=== PATIENT | female | born 1955 | race Caucasian/White ===

== ENCOUNTER 2020-05-04 18:12 | Emergency (ER) | payer OTHER ==
[~2020-05-04] VITALS: Ht 167.6 cm; Wt 95.7 kg
[2020-05-04] MEDS ORDERED: PANADOL (18:49)
[2020-05-04] MEDS ORDERED: SYNTHROID (18:50)
[2020-05-04] MEDS ORDERED: LOSARTAN (18:51)
== END 2020-05-04 19:48 | disposition home or self-care (01) ==
LOC: ER 18:12
DX: M62.830 Muscle spasm of back (principal)

== ENCOUNTER 2022-07-26 06:40 | Day surgery (SDC) | payer OTHER ==
[~2022-07-26] VITALS: Ht 167.6 cm; Wt 95.7 kg
[~2022-07-26 06:40] MED LIST: AMLODIPINE-OLM1 EAC2 PO; BAYER THERAPY325 MG PO; CLONAZEPAM0.5 M1 PO; COZAAR100 MG PO; ESTAZOLAM1 MG PO; LEXAPRO; LOSARTAN; PANADOL; SYNTHROID; SYNTHROID75 MCG PO
[2022-07-26] MEDS ORDERED: ULTRACET PO (09:22)
[2022-07-26] MEDS ORDERED: DUI500 PO (09:22)
== END 2022-07-26 13:00 | disposition home or self-care (01) ==
LOC: CIR.AMB 06:40 → EDBD 08:45 → CIR.AMB 08:45
PROVIDERS: ATTEND Orthopaedic Surgery Sports Medicine
DX: S83.242A Other tear of medial meniscus, current injury, left knee, initial encounter (principal); S83.282A Other tear of lateral meniscus, current injury, left knee, initial encounter; X58.XXXA Exposure to other specified factors, initial encounter; Y93.9 Activity, unspecified; Y92.9 Unspecified place or not applicable; M17.12 Unilateral primary osteoarthritis, left knee; I10 Essential (primary) hypertension; E03.9 Hypothyroidism, unspecified; Z20.822 Contact with and (suspected) exposure to COVID-19; Z86.16 Personal history of COVID-19

== ENCOUNTER 2022-08-06 10:36 | Emergency (ER) | payer OTHER ==
[~2022-08-06] VITALS: Ht 167.6 cm; Wt 95.7 kg
[~2022-08-06 10:36] MED LIST changes: +DUI500 PO; +ULTRACET PO
[2022-08-06] MEDS ORDERED: LEXAPRO5 MG PO (11:00)
[2022-08-06] MEDS ORDERED: ESTAZOLAM1 MG (11:01)
== END 2022-08-06 15:19 | disposition home or self-care (01) ==
LOC: ER 10:36
DX: K59.01 Slow transit constipation (principal); Z79.82 Long term (current) use of aspirin; Z79.899 Other long term (current) drug therapy